=== PATIENT | male | born 1950 | race Caucasian/White ===

== ENCOUNTER 2018-01-01 20:48 | Emergency (ER) | payer BC ==
[2018-01-01 21:03] VITALS: BP 160/93
--- NOTE | 2018-01-01 21:35 | ED ---
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 Slipped in the driveway on ice and rolled his Rt ankle as he then split his legs and Lt hip extended, causing him to fall on his Lt anterior knee and plantarflex his Lt ankle. Knee is cut and was bleeding - stopped with pressure. Due to his congenital pain issues, he does not feel pain after fall but reports his Lt ankle looks and feels abnormal from baseline. Rt ankle also looks swollen. He bases his injuries on function (or lack thereof) as he cannot feel pain. Denies falling on his UE's, butt back or head. No LOC, change in vision, nausea , vomiting, confusion, photophobia or fatigue. - History of Current Complaint Chief Complaint: UCLowerExtremity Stated Complaint: KNEE AND ANKLE INJURY Time Seen by Provider: 01/01/18 20:54 Hx Obtained From: Patient, Family/Cut Out Stitcher Pain Intensity: 0 - Allergies/Home Medications Allergies/Adverse Reactions: Allergies Allergy/AdvReac Type Severity Reaction Status Date / Time Penicillins Allergy Severe Swelling Verified 01/01/18 21:05 Of Face,Lips,& Throat Home Medications: Home Medications Aspirin 81 mg CHEW TAB* 1 tab PO DAILY 01/01/18 [History Confirmed 01/01/18] Lisinopril TAB* [Prinivil TAB 5 MG*] 5 mg PO DAILY 01/01/18 [History Confirmed 01/01/18] Metoprolol Tartrate TAB* [Lopressor TAB*] 12.5 mg PO BID 01/01/18 [History Confirmed 01/01/18] Nitroglycerin TAB 0.4 MG* 0.4 mg SL Q5M PRN 01/01/18 [History Confirmed 01/01/18 ] Pravastatin Sodium 20 mg PO DAILY 01/01/18 [History Confirmed 01/01/18] PMH/Surg Hx/FS Hx/Imm Hx Previously Healthy: Yes Endocrine/Hematology History: Denies: Hx Anticoagulant Therapy, Hx Unexplained Bleeding Cardiovascular History: Reports: Hx Hypertension Sensory History: Reports: Hx Contacts or Glasses, Other Sensory Impairments - RT eye vitrectomy Opthamlomology History: Reports: Hx Contacts or Glasses Neurological History: Reports: 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 - Surgical History Surgery Procedure, Year, and Place: vitrectomy, kneecap rebuild - Immunization History Immunizations Up to Date: Unable to Obtain/Confirm Infectious Disease History: Yes Infectious Disease History: Reports: Hx Hepatitis Denies: Hx of Known/Suspected MRSA, Traveled Outside the [place] in Last 30 Days - Social History Lives: With Family Alcohol Use: None Hx Substance Use: No Substance Use Type: Reports: None Hx Tobacco Use: No Smoking Status (MU): Former Smoker Review of Systems Constitutional: Negative Eyes: Negative ENT: Negative Cardiovascular: Negative Respiratory: Negative Gastrointestinal: Negative Positive: no symptoms reported Positive: Decreased ROM, Edema Skin: Other - Lt knee lac Neurological: Negative Psychological: Normal All Other Systems Reviewed And Are Negative: Yes Physical Exam Triage Information Reviewed: Yes Vital Signs On Initial Exam: Initial Vitals Temp Pulse Resp BP Pulse Ox 99.5 F 91 16 160/93 98 01/01/18 20:55 01/01/18 20:55 01/01/18 20:55 01/01/18 20:55 01/01/18 20:55 Vital Signs Reviewed: Yes Appearance: Positive: Well-Appearing, No Pain Distress, Well-Nourished Skin: Positive: Warm, Skin Color Reflects Adequate Perfusion, Other - Lt anterior knee w/ dermis shredded and small amount of asphalt debris present - no active bleeding Head/Face: Positive: Normal Head/Face Inspection - atraumatic Eyes: Positive: Other: - Rt eye with patch from recent surgery ENT: Positive: Normal ENT inspection, Hearing grossly normal, Pharynx normal - atraumatic Neck: Positive: Supple - FROM w/o restriction Respiratory/Lung Sounds: Positive: Breath Sounds Present Cardiovascular: Positive: Pulses are Symmetrical in both Upper and Lower Extremities - DP's + 2 equal B/L; cap refill < 2 secs NOTE: varicose vv B/L in LE's. Negative: Leg Edema Left, Leg Edema Right Musculoskeletal: Negative: Strength/ROM Intact - Lt ankle flexion/extension is somewhat limited; Lt lateral malleolus w/ lizeth deformity; tibial region, knee and femur are w/o deformity and pt was able to wt bear w/o instability; Rt ankle w/ mild edema - no gross deformity or laxity; reports Lt knee feels stiff when he tries to flex but can extend with full range and strength, Pain @ Neurological: Positive: Alert, Oriented to Person Place, Time. Negative: Sensory/Motor Intact Psychiatric: Positive: Normal Diagnostics - Vital Signs Vital Signs Temp Pulse Resp BP Pulse Ox 01/01/18 20:55 99.5 F 91 16 160/93 98 - Laboratory Lab Statement: Any lab studies that have been ordered have been reviewed, and results considered in the medical decision making process. Lower Extremity Course/Dx - Course Course Of Treatment: XR's: no fx's, no dislocation, no effusions. Lt ankle may be sprain and d/t pt's limited ROM and lateral deformity, will provide crutches and NWB until final radiology read tomorrow. - Diagnoses Provider Diagnoses: Fall from standing Discharge - Sign-Out/Discharge Documenting (check all that apply): Patient Departure All imaging exams completed and their final reports reviewed: Yes - Discharge Plan Condition: Stable Disposition: HOME Patient Education Materials: Laceration Without Closure (ED), Ankle Sprain (ED) , Crutch Instructions (ED) Referrals: Myranda Poole MD [Primary Care Provider] - Additional Instructions: Wash wound daily and redress until scabs. Monitor for signs of infection - redness, swelling, purulent drainage, fever, chills - if these present, seek medical attention. Otherwise, follow-up with Dr. Poole this week for wound recheck. Remain non-weight bearing on Left ankle by using crutches until final radiology report returns tomorrow. You will receive a phone call or you may call if you have not heard by 10:00am. - Billing Disposition and Condition Condition: STABLE Disposition: Home
[2018-01-01] MEDS ORDERED: Tetan/Diph/Pertus SYR(Tdap)* 0.5 ML SYR(BOOSTRIX) use SYR IM ONE (21:46)
== END 2018-01-01 22:25 | disposition home or self-care (01) ==
LOC: UCEAST 20:48
DX: S81.012A Laceration without foreign body, left knee, initial encounter (principal); W00.2XXA Other fall from one level to another due to ice and snow, initial encounter; Y92.9 Unspecified place or not applicable; Z88.0 Allergy status to penicillin; I10 Essential (primary) hypertension; G60.8 Other hereditary and idiopathic neuropathies
CPT/HCPCS: 90471; 90715; 99213; G0463